=== PATIENT | male | born 1950 | race Caucasian/White ===

== ENCOUNTER 2016-09-16 15:44 | Emergency (ER) | payer OTHER ==
[2016-09-16 15:44] VITALS: BMI 30.8
--- NOTE | 2016-09-16 16:20 | C.PDOC ---
History Of Present Illness 65 y/o male is sent to the ED for cardiac evaluation s/p abnormal stress test. 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 He was seen by faculty research physician today for pre-op stress test which was reported as significantly abnormal. Patient is scheduled for CT head and port placement for chemotherapy. At this time the patient denies any chest pain shortness of breath, trouble eating or drinking, or any physical complaints. Time Seen by Provider: 09/16/16 16:06 Chief Complaint (Nursing): Medical Clearance History Per: Patient History/Exam Limitations: no limitations Onset/Duration Of Symptoms: Persistent, Other (today) Current Symptoms Are (Timing): Still Present Recent travel outside of the [place]: No Past Medical History Reviewed: Historical Data, Nursing Documentation, Vital Signs Vital Signs: Last Vital Signs Temp 98.2 F 09/16/16 16:01 Pulse 66 09/16/16 16:01 Resp 18 09/16/16 16:01 BP 137/74 09/16/16 16:01 Pulse Ox 96 09/16/16 17:28 - Medical History PMH: Cardia Arrhythmia, HTN, Hypercholesterolemia Other PMH: lung cancer Surgical History: Pacemaker Family History: States: Unknown Family Hx - Social History Hx Tobacco Use: Yes (former smoker) Hx Alcohol Use: No Hx Substance Use: No - Immunization History Hx Tetanus Toxoid Vaccination: No Hx Influenza Vaccination: No Hx Pneumococcal Vaccination: No (UNKNOWN) Review Of Systems Except As Marked, All Systems Reviewed And Found Negative. Constitutional: Positive for: Other (abnormal stress test today) Cardiovascular: Negative for: Chest Pain Respiratory: Negative for: Shortness of Breath Physical Exam - Physical Exam Appears: Non-toxic, No Acute Distress, Other (comfortable) Skin: Normal Color, Warm, Dry Head: Atraumatic, Normacephalic Neck: Normal ROM Chest: Symmetrical, No Tenderness Cardiovascular: Rhythm Regular, No Edema Respiratory: Normal Breath Sounds, No Rales, No Rhonchi, No Wheezing Gastrointestinal/Abdominal: Normal Exam, Soft, No Tenderness Back: Normal Inspection, No CVA Tenderness Extremity: Normal ROM, No Pedal Edema, No Swelling Neurological/Psych: Oriented x3, Normal Speech, Normal Cognition ED Course And Treatment - Laboratory Results Result Diagrams: 09/16/16 16:35 09/16/16 16:35 Lab Interpretation: No Acute Changes ECG: Interpreted By Me ECG Rhythm: Sinus Rhythm (with Q waves V1-2) ECG Interpretation: No Acute Changes O2 Sat by Pulse Oximetry: 96 (ra) Pulse Ox Interpretation: Normal - Radiology CXR: Interpreted by Me CXR Interpretation: Yes: Other (mass PAOLA) - Other Rad CXR X-Ray: Viewed By Me, Read By Radiologist Interpretation: IMPRESSION: Left perihilar and upper lobe consolidation could represent pneumonia however postobstructive pneumonia with central mass cannot be excluded. Follow-up after medical management is recommended. The CT scan of the chest with intravenous contrast would be helpful for further evaluation. Reevaluation Time: 17:36 Reassessment Condition: Unchanged - Physician Consult Information Time Consulting Physician Contacted: 17:36 Physician Contacted: Dana Patel Outcome Of Conversation: Patient to be admitted for additional cardiac evaluation and staging of lung CA Medical Decision Making Medical Decision Making: Patient with "significantly abnormal" pre-op stress test today sent to the ED for cardiac work up and admission to Dr. Patel for cardiac catheterization by Dr. Raymond. Plan: * EKG * CXR * Blood Work Disposition - Disposition Disposition: HOSPITALIZED Disposition Time: 17:36 Condition: STABLE - POA Present On Arrival: None - Clinical Impression Clinical Impression: Abnormal stress ECG, Metastatic lung cancer (metastasis from lung to other site ) - Scribe Statement The provider has reviewed the documentation as recorded by the Scribe (Toshia Wheatley) Provider Attestation: All medical record entries made by the Scribe were at my direction and personally dictated by me. I have reviewed the chart and agree that the record accurately reflects my personal performance of the history, physical exam, medical decision making, and the department course for this patient. I have also personally directed, reviewed, and agree with the discharge instructions and disposition.
[2016-09-16 16:40] LABS: BASO # 0.2 K/uL (0.0-0.2); BASO % 1.5 % (0.0-2.0); EOS # 1.3 K/uL (0.0-0.7); EOS % 10.5 % (0.0-4.0); HEMATOCRIT 36.7 % (35.0-51.0); LYMPH # 2.4 K/uL (1.0-4.3); MEAN CELL VOLUME 69.8 fL (80.0-94.0); MEAN CORPUSCULAR HEMOGLOBIN 22.2 pg (27.0-31.0); MEAN CORPUSCULAR HGB CONC 31.8 g/dL (33.0-37.0); MEAN PLATELET VOLUME 7.6 fL (7.2-11.7); MONO # 1.2 K/uL (0.0-0.8); MONO % 10.2 % (0.0-10.0); RED CELL DISTRIBUTION WIDTH 16.8 % (11.5-14.5); WHITE BLOOD COUNT 12.2 K/uL (4.8-10.8)
--- NOTE | 2016-09-16 16:47 | RAD ---
PROCEDURE: CHEST RADIOGRAPH, 1 VIEW HISTORY: Chest pain COMPARISON: None available. FINDINGS: LUNGS: The right lung is clear. There is and ill-defined opacity in the left upper lobe and perihilar region. PLEURA: No pneumothorax or pleural fluid seen. CARDIOVASCULAR: The heart is normal in size. There is a left-sided dual lead transvenous permanent pacing device. OSSEOUS STRUCTURES: No significant abnormalities. VISUALIZED UPPER ABDOMEN: Normal. OTHER FINDINGS: None. IMPRESSION: Left perihilar and upper lobe consolidation could represent pneumonia however postobstructive pneumonia with central mass cannot be excluded. Follow-up after medical management is recommended. The CT scan of the chest with intravenous contrast would be helpful for further evaluation.
[2016-09-16 16:48] LABS: CHLORIDE 101 mmol/L (98-107); SODIUM 142 mmol/L (132-148)
[2016-09-16 16:50] LABS: AST/SGOT 13 U/L (17-59); BILIRUBIN,TOTAL 0.2 mg/dL (0.2-1.3); CARBON DIOXIDE 25 mmol/L (22-30); GFR AFRICAN-AMERICAN > 60
[2016-09-16 16:51] LABS: ALB/GLOB RATIO 1.1 (1.0-2.1); ALKALINE PHOSPHATASE 85 U/L (38-126); ALT/SGPT 25 U/L (21-72); BLOOD UREA NITROGEN 19 mg/dL (9-20); CALCIUM 9.3 mg/dl (8.6-10.4); GLUCOSE,RANDOM 96 mg/dL (75-110); TOTAL PROTEIN 7.8 g/dL (6.3-8.3)
[2016-09-16 19:48] VITALS: BP 131/71; PULSE 68; RESP 16; TEMP 97.9; O2SAT 95
--- NOTE | 2016-09-28 23:18 | CARD ---
APPROVED REPORT EKG Measurement Heart [id number] <Conclusion> Normal sinus rhythm Septal infarct, age undetermined Abnormal ECG
== END 2016-09-16 19:55 | disposition left against medical advice (07) ==
LOC: C.ER 15:44 → UNDOADMIN 17:39 → C.9E 17:39 → C.6T 19:43 → C.9E 19:43 → C.6T 19:49 → C.9E 19:49 → C.ER 19:55
DX: R94.39 Abnormal result of other cardiovascular function study (principal); C34.90 Malignant neoplasm of unspecified part of unspecified bronchus or lung; C78.7 Secondary malignant neoplasm of liver and intrahepatic bile duct; C78.89 Secondary malignant neoplasm of other digestive organs; Z87.891 Personal history of nicotine dependence